=== PATIENT | female | born 1985 | race Caucasian/White ===

== ENCOUNTER → 2016-05-25 | Outpatient (CLI) | payer BC ==
[~2016-05-25] MED LIST: ACET-749 PO; PRENTAB26 PO; VALA500T60 PO
== END | disposition home or self-care (01) ==
LOC: C.LABSPEC 15:30
PROVIDERS: ATTEND Obstetrics & Gynecology
DX: O09.03 Supervision of pregnancy with history of infertility, third trimester (principal)

== ENCOUNTER 2016-06-24 19:34 | Inpatient (IN) | payer BC ==
[~2016-06-24] VITALS: Ht 167.6 cm; Wt 80.5 kg
[2016-06-24] MEDS ORDERED: LACTATED RINGER'S 1000ML 1,000 ML IV PRN (20:22)
[2016-06-24] MEDS ORDERED: PRENTAB26 PO (20:23)
[2016-06-24] MEDS ORDERED: VALA500T60 PO (20:23)
[2016-06-24 20:25] VITALS: Ht 167.6 cm; Wt 80.5 kg
[2016-06-24] MEDS ORDERED: EpHEDrine SULFATE INJ 50 MG/ML AMP ONE (21:18)
[2016-06-24] MEDS ORDERED: BUPIVACAINE 0.25% 30 ML VIAL ONE (21:18)
[2016-06-24] MEDS ORDERED: FENTANYL CITRATE INJ 50 MCG/1 ML 2 ML VIAL ONE (21:19)
[2016-06-24] MEDS ORDERED: FENTANYL 2MCG/ML ROPIV 1.25MG/ML 100ML BAG EPI ONE (21:19)
[2016-06-24 21:28] LABS: HEMATOCRIT 34.8 % (37-47); MEAN CELL VOLUME 91.8 fL (80-100); MEAN CORPUSCULAR HEMOGLOBIN 32.7 pg (25-34); MEAN CORPUSCULAR HGB CONC 35.6 g/dl (32-36); MEAN PLATELET VOLUME 11.6 fL (7.4-10.4); PLATELET COUNT 180 K/uL (130-400); RED BLOOD COUNT 3.79 M/uL (4.2-5.4); WHITE BLOOD COUNT 16.62 K/uL (4.8-10.8)
[2016-06-24] MEDS: LACTATED RINGER'S 1000ML 1,000 ML IV SCH (21:55)
[2016-06-24] MEDS ORDERED: LACTATED RINGER'S 1000ML 500 ML IV PRN (22:12)
[2016-06-24] MEDS ORDERED: NALOXONE HCL INJ 1 MG in SODIUM CHLORIDE 0.9% 1000ML 1,000 ML IV PRN ×4 (22:12)
[2016-06-24] MEDS ORDERED: NALBUPHINE HCL INJ 10 MG/ML AMP IV PRN (22:15)
[2016-06-24] MEDS ORDERED: DiphenhydrAMINE HCL 50 MG/ML VIAL IV PRN (22:15)
[2016-06-24] MEDS ORDERED: EpHEDrine SULFATE INJ 50 MG/ML AMP IV PRN (22:15)
[2016-06-24] MEDS ORDERED: PROMETHAZINE HCL INJ 25 MG in SODIUM CHLORIDE 0.9% 50ML 50 ML IV PRN (22:15)
[2016-06-24] MEDS ORDERED: ONDANSETRON INJ 2 MG/ML 2 ML VIAL IV PRN (22:15)
[2016-06-24] MEDS ORDERED: NALOXONE HCL INJ 0.4 MG/1 ML VIAL/CARP IV PRN (22:15)
[2016-06-25] MEDS: FENTANYL 2MCG/ML ROPIV 1.25MG/ML 100ML BAG EPI PRN ×3 (05:09→11:24)
[2016-06-25] MEDS: LACTATED RINGER'S 1000ML 1,000 ML IV SCH (05:39)
[2016-06-25] MEDS ORDERED: LACTATED RINGER'S 1000ML 500 ML IV PRN (08:04)
[2016-06-25] MEDS ORDERED: OXYTOCIN 30 UNITS/500ML NSS IV PRN ×2 (08:15→12:30)
[2016-06-25] MEDS ORDERED: OXYTOCIN INJ 20 UNITS in LACTATED RINGER'S 1000ML 1,000 ML IV SCH (12:22)
[2016-06-25] MEDS ORDERED: BENZOCAINE 20% AER SPR 82.5 GM CAN EXT PRN (12:30)
[2016-06-25] MEDS ORDERED: SUPERCREAM 0.870 % 15GM JAR EXT PRN (12:30)
[2016-06-25] MEDS ORDERED: DIPHTHERIA/TETANUS/PERTUSSIS 0.5 ML SYR/VIAL IM. ONE (12:30)
[2016-06-25] MEDS ORDERED: ACETAMINOPHEN/CODEINE 300/30MG TAB PO PRN (12:30)
[2016-06-25] MEDS ORDERED: ACETAMINOPHEN 325 MG TAB PO PRN (12:30)
[2016-06-25] MEDS ORDERED: HYDROCORTISONE ACETATE 25 MG SUPP PR PRN (12:30)
[2016-06-25] MEDS ORDERED: LANOLIN OINT EXT PRN ×2 (12:30)
[2016-06-25] MEDS ORDERED: OXYTOCIN 30 UNITS/500ML NSS IV ONE (12:31)
--- NOTE | 2016-06-25 12:48 | DELIVERY SUMMARY ---
DATE OF OPERATION: 06/25/2016 The patient dilated to complete and pushed to deliver a viable female infant, Apgars 8 and 9 via . Tight nuchal cord noted at the perineum and therefore doubly clamped and cut at the perineum. Shoulders and body then delivered with ease. Thin meconium was present; however, the baby did take its first gasp immediately. taken to the radiant warmer for drying and attention. Placenta delivered spontaneously and intact after cord blood collection for donation was obtained. Laceration was complicated. Partial third degree laceration noted; however, deep bleeding sites were noted at the perineal level. This required multiple sutures in a [id number] fashion to control the bleeding. The remainder of the laceration included routine repair of partial third degree laceration, which included reinforcing 2-0 Vicryl sutures around the capsule of the anus and then the remainder of the laceration repaired in the usual fashion. EBL 600 mL. Cervix and sulci were visualized and intact. Hemostasis was achieved of the uterus with dilute Pitocin and uterine massage as well as drainage of the bladder under sterile conditions for approximately 200 mL of urine. Mother and baby stable in recovery. Rectal exam performed at the end of the procedure revealing no sutures in the rectum. I attest to the content of the Intraoperative Record and any orders documented therein. Any exceptions are noted below. SHAQUILLED
--- NOTE | 2016-06-25 12:48 | Anesthesia Procedure Note ---
Anesthesia Epidural Removal Nt Date & Time Jun 25, 2016 at 12:47 Vital Signs Pain Intensity: 0.0 Notes Mental Status: alert / awake / arousable, participated in evaluation Nausea / Vomiting: adequately controlled Pain: adequately controlled Airway Patency, RR, SpO2: stable & adequate BP & HR: stable & adequate Hydration State: stable & adequate Neuraxial Anesthesia: was administered, sensory block is resolved Anesthetic Complications: no major complications apparent, pt satisfied with anesthetic care Epidural: removed without complications, with tip intact
[2016-06-25] MEDS: IBUPROFEN 600 MG TAB PO PRN ×3 (14:06→23:47)
[2016-06-25 17:15] VITALS: BP 136/67; PULSE 81; TEMP 36.9
[2016-06-25 18:10] VITALS: BP 108/57; PULSE 83; TEMP 36.5
[2016-06-25 20:30] VITALS: BP 129/68; PULSE 83; TEMP 36.6
[2016-06-25] MEDS: DOCUSATE SODIUM 100 MG CAP PO SCH (20:58)
[2016-06-25 23:35] VITALS: BP 114/63; PULSE 82; TEMP 36.6
[2016-06-26 03:55] VITALS: BP 117/68; PULSE 90; TEMP 36.5
[2016-06-26] MEDS: IBUPROFEN 600 MG TAB PO PRN ×5 (03:55→23:48)
[2016-06-26 07:48] LABS: HEMATOCRIT 25.7 % (37-47)
[2016-06-26 07:55] VITALS: BP 116/72; PULSE 86; TEMP 36.8
[2016-06-26] MEDS: DOCUSATE SODIUM 100 MG CAP PO SCH ×2 (08:21→18:57)
--- NOTE | 2016-06-26 09:46 | Progress Note ---
Subjective Jun 26, 2016. Subjective conversation w/ patient, physical exam Ambulation: ambulating normally Voiding: no voiding problems Passing Gas: Yes Diet Tolerance: Regular Diet Lochia: Small Feeding Type: Breast Feeding Pain: bottom sore, using motrin Objective Vital Signs Date Time Temp Pulse Resp B/P Pulse Ox O2 Delivery O2 Flow Rate FiO2 06/26/16 08:20 Room Air 06/26/16 07:55 36.8 86 20 116/72 06/26/16 03:55 36.5 90 16 117/68 Room Air 06/25/16 23:35 Room Air 06/25/16 23:35 36.6 82 18 114/63 Room Air 06/25/16 20:30 36.6 83 16 129/68 Room Air 06/25/16 18:10 36.5 83 18 108/57 Room Air 06/25/16 17:15 36.9 81 20 136/67 Physical Exam General Appearance: WELL-APPEARING, WD/WN, NO APPARENT DISTRESS Respiratory/Chest: lungs clear Cardiovascular: regular rate, rhythm Abdomen: non tender, soft Fundus: Firm, Relation to Umbilicus (2 down) Extremities: non-tender Laboratory Results Last 24 Hours Test 06/26/16 07:05 Hemoglobin 8.9 g/dL Hematocrit 25.7 % Assessment and Plan Post- Day#: 1 Continue Routine Care: stable, h/h noted, discussed her laceration need for colace and iron +mvi for next 6wks. routine care.
[2016-06-26] MEDS: ACETAMINOPHEN/CODEINE 300/30MG TAB PO PRN ×3 (15:19→23:49)
[2016-06-26 15:30] VITALS: BP 116/68; PULSE 86; TEMP 37
[2016-06-26 21:00] VITALS: BP 117/64; PULSE 82; TEMP 36.8
[2016-06-26 23:15] VITALS: BP 109/58; PULSE 83; TEMP 36.8
[2016-06-27] MEDS: ACETAMINOPHEN/CODEINE 300/30MG TAB PO PRN ×2 (05:11→09:48)
[2016-06-27] MEDS: IBUPROFEN 600 MG TAB PO PRN ×2 (05:11→09:48)
[2016-06-27] MEDS: DOCUSATE SODIUM 100 MG CAP PO SCH (07:28)
[2016-06-27 07:30] VITALS: BP 112/68; PULSE 80; TEMP 36.5; O2SAT 96
--- NOTE | 2016-06-27 07:43 | Progress Note ---
Subjective Jun 27, 2016. Subjective conversation w/ patient, physical exam Ambulation: ambulating normally Voiding: no voiding problems Passing Gas: Yes Diet Tolerance: Regular Diet Lochia: Small Feeding Type: Breast Feeding Review of Systems Constitutional: No chills, No fever Respiratory: No cough, No shortness of breath Cardiac: No chest pain, No palpitations Abdomen: No nausea, No pain, No vomiting Female : + problem reported (small amount of pus on tissue when wiping) Objective Vital Signs Date Time Temp Pulse Resp B/P Pulse Ox O2 Delivery O2 Flow Rate FiO2 06/26/16 23:15 Room Air 06/26/16 23:15 36.8 83 18 109/58 Room Air 06/26/16 21:00 36.8 82 20 117/64 Room Air 06/26/16 15:30 Room Air 06/26/16 15:30 37.0 86 20 116/68 Room Air 06/26/16 08:20 Room Air 06/26/16 07:55 36.8 86 20 116/72 Physical Exam General Appearance: WELL-APPEARING, NO APPARENT DISTRESS Respiratory/Chest: lungs clear, normal breath sounds Cardiovascular: regular rate, rhythm, no murmur Abdomen: normal bowel sounds, non tender Fundus: Firm, Non-Tender, Relation to Umbilicus (2 cm below) Extremities: non-tender, no calf tenderness Laboratory Results Last 24 Hours Test 06/26/16 07:05 Hemoglobin 8.9 g/dL Hematocrit 25.7 % Assessment and Plan Post- Day#: 2 Continue Routine Care: A/P: s/p Day 2 - 11/07 vaginal pain due to lacerations - Would like to go home with percocet prescription - Vital signs reviewed and wnl - Hgb reviewed 8.9 yesterday - Blood type: A+, GBS-, Rubella immune - Pt is doing well clinically - Encourage ambulation, monitor and control pain with motrin prn, resume regular diet, monitor lochia - Encourage breast feeding - Pt counselled on d/c instructions Resident Physician Supervision Note: I interviewed and examined the patient. Discussed with Dr. Dodd and agree with findings and plan as documented in the note. Any exceptions or clarifications are listed here: I did not discuss the patient with resident. I saw pt on my own. s/ no complaint except sore bottom and requests tylenol #3 for pain. voiding, ambulating without problem. jodie regular diet. bleeding has slowed. o/ af vss cor rrr, lungs ctab, abd soft ff down 2 down, ext nt calves a / ppd #2 s/p , routine care. d/c home. f/u 6 wks. Documented By: Steffanie Valladares
[2016-06-27] MEDS ORDERED: ACET-749 PO (08:40)
--- NOTE | 2016-06-27 11:04 | Discharge Instructions ---
Discharge Instructions Admission Reason for Admission: Spontaneous Onset Of Labor (Scot Dodd MD) Discharge Discharge Diagnosis / Problem: Spontaneous Vaginal Delivery (Scot Dodd MD) Discharge Goals Goal(s): Routine recovery after delivery (Scot Dodd MD) Medications Continue Dispensed Medications: supercream, dermaplast, tucks, lansinoh (Scot Dodd MD) Activity Recommendations Activity Limitations: per Instructions/Follow-up section . (Scot Dodd MD) Instructions / Follow-Up Instructions / Follow-Up ACTIVITY RECOMMENDATIONS: * Gradual return to full activity over the next 2-3 weeks. * No lifting - nothing heavier than baby over the next 2-3 weeks. * Do not engage in vigorous exercise, sexual activity or sports until cleared by your physician. * Do not drive or operate any motorized equipment until cleared by your physician. * You may shower/bathe daily. MEDICATIONS: For discomfort or pain, you may use Acetaminophen (Tylenol), Ibuprofen (Advil), or Naproxen (Aleve) following the package directions. For constipation you may use Colace following the package directions. BREAST CARE: If you are not breast feeding: * Wear a supportive bra 24 hours a day for one to two weeks. * Avoid stimulating your breasts and nipples as much as possible during the first few weeks after delivery. * When taking a shower, have the warm water hit your back, not breasts. * When your breasts feel full, apply ice packs. Usually three to four times a day helps ease the discomfort. * Take a mild pain medication (Tylenol / Motrin) when you are uncomfortable. If breast feeding: * Use breast milk to lubricate nipples. Lansinoh cream may be used for sore nipples. You do not need to remove cream prior to breast feeding. If using a different brand of cream, check the label for directions regarding removal of cream prior to nursing. * Wear a supportive bra. * If having problems with breasts or breast feeding, call a digital marketing consultant or your health care provider. EPISIOTOMY CARE: After delivery, if you have an episiotomy (stitches), the following steps will ease discomfort and aid healing. * For the first 24 hours after delivery, place ice packs next to your episiotomy to help reduce swelling. * After the first 24 hour-period, sitz baths, either portable or in the tub, are suggested. A shower with a shower arm sprayed over the episiotomy may be comforting. * Vidhi care should be done after each voiding and bowel movement. Squirt warm water from a plastic bottle over the perineum (region of the body between the anus and urinary opening) and pat dry. * Use Dermoplast to ease discomfort. Shake container. [place] directly over the episiotomy. Place a Tucks on a clean sanitary pad next to your episiotomy. SPECIAL CARE INSTRUCTIONS: When you are discharged from the hospital, it is important for you to follow the instructions listed below: * During the first week at home, you should be able to care for yourself and your baby. In addition, the usual light household activities are encouraged. * Limit your activities to the way you feel. Do not try to clean the house or move furniture. Be sensible. * If you actively engage in sports and have done so up until the time of your delivery, you may resume these activities as soon as you feel able. This may take up to one month or even longer. Use good judgment. * Continue to take your vitamins for at least six weeks after the of your baby. * Your diet need not be limited unless you were on a special diet before your delivery. Breast-feeding mothers need around 2500 calories per day and at least 64-80 ounces of fluid per day (8 to 10 glasses). * You should eat foods from the four major food groups. Crash diets or fad diets are to be avoided. Eating lean meats, fresh fruits and vegetables, low-fat dairy products, high fiber foods and a regular exercise program, will help you get back to your pre- weight without putting your health at risk. * Constipation is sometimes a problem after delivery. Take a mild laxative as needed. If breast feeding, Milk of Magnesia is acceptable to use. You may use a suppository or Fleets enema if no episiotomy. * A daily shower or tub bath is suggested. Be sure to thoroughly and gently dry the perineum. * A bloody vaginal discharge will usually continue until around four weeks post . A small amount of bleeding may continue for as long as six weeks. Vaginal discharge changes from the bright red bleeding after delivery to pink then brownish and finally yellowish-pink before becoming white and disappearing. * Bleeding may increase with activity. Your first period may come in 4-8 weeks. If you are breast feeding, your period may be delayed even longer. * [place] (sex) can begin whenever both you and your partner feel comfortable and do not have any form of genital infection. It is recommended that you wait at least six weeks for internal and external healing to occur. If you have questions, please talk to your health care practitioner. A condom should be used to prevent infection and . * Foreplay, gentle intercourse and lubrication is very important the first several times to prevent pain. A water-based lubricant such as K-Y jelly or Astroglide may be used. * If you have RH negative blood and your baby is RH positive, you will receive RHOGAM by injection prior to discharge. The nurse will give you a card to keep with you that has the date and place that you received RHOGAM after delivery. * During your care, you had a Rubella screen done to check for the presence of rubella antibodies in your blood. If your test was negative, you will receive a Rubella vaccine prior to discharge. This vaccine may cause a fever, soreness at the injection site and flu-like symptoms. If these symptoms persist, notify your health care practitioner. is not advised for one month after a Rubella vaccine. * Verbalizes understanding of car seat law as reviewed with patient nursing. * Car Seat hand-out given and reviewed with patient by nursing. * Shaken baby information reviewed with patient by nursing. Call you doctor if: * Heavy bleeding (saturating several pads an hour) or passing clots the size of your fist. * A fever >101 degrees F (38.3 degrees C) on two occasions four hours apart and /or chills. * Unusual pain in the pelvic or vaginal areas. * "Baby Blues" lasting longer than two weeks. If you have any questions or concerns, call your health care practitioner at . FOLLOW UP VISIT: * Please call the office at to schedule a 6 week examination. It is important you keep this appointment. It is important for you to make arrangements for either yearly or twice yearly check-ups thereafter. (Scot Dodd MD) Current Hospital Diet Patient's current hospital diet: Regular OB Diet (Scot Dodd MD) Discharge Diet Recommended Diet: Regular OB Diet (Scot Dodd MD) Pending Studies Studies pending at discharge: no (Scot Dodd MD) Medical Emergencies . Who to Call and When: Medical Emergencies: If at any time you feel your situation is an emergency, please call 911 immediately. . (Scot Dodd MD) Non-Emergent Contact Non-Emergency issues call your: Primary Care Provider, Freezer Operator . (Scot Dodd MD) . "Provider Documentation" section prepared by Scot Dodd. (Scot Dodd MD) VTE Core Measure Inpt VTE Proph given/why not?: Treatment not indicated (Scot Dodd MD)
[2016-06-27 12:19] VITALS: BP_DIAS 68; PULSE 80; TEMP 36.5
== END 2016-06-27 13:15 | disposition home or self-care (01) | DRG 775 ==
LOC: C.LD 19:34 → C.OPB 19:34 → C.LD 20:25 → C.OPB 20:25 → C.OBG 06-25 18:18
PROVIDERS: ADMIT Obstetrics & Gynecology; ATTEND Obstetrics & Gynecology
PROC: 0DQR0ZZ Repair Anal Sphincter, Open Approach (ICD-10-PCS; principal; 2016-06-25)
PROC: 10E0XZZ Delivery of Products of Conception, External Approach (ICD-10-PCS; principal; 2016-06-25)
DX: O70.20 Third degree perineal laceration during delivery, unspecified (principal); O69.1XX0 Labor and delivery complicated by cord around neck, with compression, not applicable or unspecified; Z37.0 Single live birth; Z3A.40 40 weeks gestation of pregnancy

== ENCOUNTER → 2016-08-08 | Outpatient (CLI) | payer BC ==
[~2016-08-08] MED LIST changes: -VALA500T60 PO
== END | disposition home or self-care (01) ==
LOC: C.PAPS 16:22
PROVIDERS: ATTEND Obstetrics & Gynecology
DX: Z39.2 Encounter for routine postpartum follow-up (principal)

== ENCOUNTER → 2017-11-16 | Outpatient (CLI) | payer BC ==
[~2017-11-16] MED LIST changes: -ACET-749 PO; +ACET300T3 PO
== END | disposition home or self-care (01) ==
LOC: C.LABSPEC 18:03
PROVIDERS: ATTEND Obstetrics & Gynecology
DX: Z34.81 Encounter for supervision of other normal pregnancy, first trimester (principal); Z3A.00 Weeks of gestation of pregnancy not specified

== ENCOUNTER → 2017-11-20 | Outpatient (CLI) | payer BC ==
[2017-11-20 09:40] LABS: BASO % 0.3 %; BASO ABS # 0.03 K/uL (0-0.2); EOS % 0.2 %; EOS ABS # 0.02 K/uL (0-0.5); HEMATOCRIT 36.7 % (37-47); HEMOGLOBIN 13.2 g/dL (12.0-16.0); IG# 0.02 K/uL (0.00-0.02); LYMPH % 28.4 %; MEAN CELL VOLUME 89.5 fL (80-100); MEAN CORPUSCULAR HEMOGLOBIN 32.2 pg (25-34); MONO % 6.9 %; MONO ABS # 0.66 K/uL (0.11-0.59); NEUT ABS # 6.07 K/uL (1.4-6.5); PLATELET COUNT 207 K/uL (130-400); RED CELL DISTRIBUTION WIDTH CV 12.2 % (11.5-14.5); RED CELL DISTRIBUTION WIDTH SD 39.7 fL (36.4-46.3)
== END | disposition home or self-care (01) ==
LOC: C.LAB1850 08:16
PROVIDERS: ATTEND Obstetrics & Gynecology
DX: Z34.81 Encounter for supervision of other normal pregnancy, first trimester (principal)

== ENCOUNTER 2019-11-22 18:47 | Inpatient (IN) ==
[2019-11-22] MEDS ORDERED: OXYTOCIN 30 UNITS/500 ML BAG IV PRN ×2 (18:53→22:56)
[2019-11-22] MEDS: LACTATED RINGER'S 1,000 ML IV PRN ×2 (18:55→19:56)
[2019-11-22 19:27] LABS: Hematocrit (blood only) 33.5 % (37-47); Hemoglobin 11.5 g/dL (12.0-16.0); Mean Corpuscular Hemoglobin 31.6 pg (25-34); Mean Platelet Volume 11.5 fL (7.4-10.4); Platelet Count 213 K/uL (130-400); RDW Coefficient of Variation 13.1 % (11.5-14.5); RDW Standard Deviation 43.6 fL (36.4-46.3); Red Blood Count 3.64 M/uL (4.2-5.4); White Blood Count 15.06 K/uL (4.8-10.8)
[2019-11-22] MEDS ORDERED: ePHEDrine sulfate 50 MG/ML AMP ONE (19:32)
[2019-11-22] MEDS ORDERED: fentaNYL citrate 100 MCG/2 ML VIAL ONE (19:33)
[2019-11-22] MEDS ORDERED: BUPIVACAINE 0.25% 30 ML VIAL ONE (19:33)
[2019-11-22] MEDS ORDERED: fentaNYL 2MCG/ML ROPIV 1.25MG/ML 100 ML BAG EPI ONE (19:33)
[2019-11-22 19:47] LABS: Mean Corpuscular Hgb Conc 34.3 g/dL (32-36)
[2019-11-22] MEDS ORDERED: ONDANSETRON INJ 2 MG/ML 2 ML VIAL IV PRN (21:01)
[2019-11-22] MEDS ORDERED: NALOXONE HCL 0.4 MG/1 ML VIAL/CARP IV PRN (21:01)
[2019-11-22] MEDS ORDERED: fentaNYL 2MCG/ML ROPIV 1.25MG/ML 100 ML BAG EPI PRN (21:01)
[2019-11-22] MEDS ORDERED: DiphenhydrAMINE HCL 50 MG/ML VIAL IV PRN (21:01)
[2019-11-22] MEDS ORDERED: NALOXONE HCL 1 MG in SODIUM CHLORIDE 0.9% 1000ML 1,000 ML IV PRN (21:01)
[2019-11-22] MEDS ORDERED: ePHEDrine sulfate 50 MG/ML AMP IV PRN (21:01)
--- NOTE | 2019-11-22 21:01 | Anesthesiology Consultation ---
Date of Service November 22, 2019 Assessment & Plan (1) Encounter for pre-operative examination: Chart Review Chart Review: Acceptable Risk for Surgery and Patient NOT seen in Pre Admission Testing Consults Requested none ASA ASA2 Proposed Anesthesia Anesthesia Type: Labor Epidural and CSE Risk / Benefits Reviewed With: PT / POA / Parent / Guardian, Accepts Plan and Informed Consent Obtained History Height/Weight Height: 5 ft 6 in Weight: 86.183 kg Allergies Allergy/AdvReac Type Severity Reaction Status Date / Time No Known Allergies Allergy Verified 11/22/19 13:18 Medications Active Medications Generic Name Dose Route Start Last Admin Trade Name Freq PRN Reason Stop Dose Admin Lactated Ringer's 1,000 mls @ 125 mls/hr 11/22/19 18:53 11/22/19 19:56 Lr IV 11/24/19 18:52 125 mls/hr .Q8H PRN Administration L&D Protocol Protocol NPO Date Last Intake of Fluids: 11/22/19 Time Last Intake of Fluids: 18:00 Date Last Intake of Solids: 11/22/19 Time Last Intake of Solids: 12:00 Past Medical History Medical History History of varicella HSV (herpes simplex virus) infection Monochorionic diamniotic twin gestation No known health problems Exercise / Class Metabolic Activity II 4-5 Yardwork/Stairs/Walk up hill Past Family History Family History Father Hypertension Heart murmur Other Colorectal cancer Diabetes Past Surgical History Surgical History History of cryosurgery History of open reduction and internal fixation (ORIF) procedure LEFT ANKLE [place] teeth removed Past Anesthesia History No Hx of Anesthesia Complications and No Family Hx of Anesthesia Complications History of PONV No Hx of PONV and No Hx of Motion Sickness Social History Smoking Status: Never smoker Do You Dip or Chew Tobacco: No Hx Alcohol Use: No Hx Substance Use: No substance use type: does not use Physical Exam Vital Signs Last Vital Signs Temp 37.4 C 11/22/19 19:04 Pulse 84 11/22/19 20:53 Resp 18 11/22/19 19:04 BP 107/55 L 07/24/20 20:45 Pulse Ox 97 11/22/19 20:53 ENMT Mouth: no dentition abnormality Thyromental Distance: > or= 3.5 Finger Breadths Mallampati Class: II Neck normal visual inspection Respiratory normal respiratory effort Auscultation: lungs clear to auscultation bilaterally Cardiovascular Rate/Rhythm: regular rate and regular rhythm Psychiatric Orientation: alert Testing Laboratory Results 11/22/19 19:11
--- NOTE | 2019-11-23 01:57 | Anesthesia Procedure Note ---
Date of Service November 23, 2019 Anesthesia Post Epidural Note Vital Signs Vital Signs: Temp Pulse Resp BP Pulse Ox 36.8 C 97 H 18 133/68 98 11/23/19 00:45 11/23/19 01:42 11/23/19 01:42 11/23/19 01:42 11/23/19 01:33 Pain Intensity Bilateral Lower Abdomen: Pain Intensity: 1 Notes Mental Status: alert / awake / arousable Nausea / Vomiting: adequately controlled Pain: adequately controlled Airway Patency, RR, SpO2: stable & adequate BP & HR: stable & adequate Hydration State: stable & adequate Neuraxial Anesthesia: was administered and sensory block is resolving Anesthetic Complications: no major complications apparent and Pt Satisfied with anesthetic care Epidural: Removed without complications and With tip intact
[2019-11-23] MEDS ORDERED: ACETAMINOPHEN 325 MG TAB PO PRN (02:01)
[2019-11-23] MEDS ORDERED: HYDROCORTISONE ACETATE 25 MG SUPP PR PRN (02:01)
[2019-11-23] MEDS ORDERED: BENZOCAINE 20% AER SPR 82.5 GM CAN EXT PRN (02:01)
[2019-11-23] MEDS ORDERED: SUPERCREAM 0.870% 15 GM JAR EXT PRN (02:01)
[2019-11-23] MEDS ORDERED: OXYCODONE/ACETAMINOPHEN 5mg/325mg TAB PO PRN (02:01)
[2019-11-23] MEDS ORDERED: DIPHTHERIA/TETANUS/PERTUSSIS 0.5 ML SYR/VIAL IM ONE (02:01)
[2019-11-23] MEDS ORDERED: OXYTOCIN 30 UNITS/500 ML BAG IV PRN (02:01)
[2019-11-23] MEDS ORDERED: bisacodyL 10 MG SUPP PR PRN (02:01)
--- NOTE | 2019-11-23 02:10 | Delivery Summary ---
Vaginal Delivery Summary Date of Service November 23, 2019 Patient presented to labor and delivery after spontaneous rupture membranes for thin meconium stained fluid. She began jose spontaneously and requested epidural analgesia. She progressed to full dilation and pushed effectively over intact perineum for delivery of a viable female into the infant. After the head was delivered the left arm delivered and the rest of the infant delivered easily to follow. The cord was very short and therefore it was clamped and cut at the perineum so the baby could be put on the mother's abdomen. There was vigorous crying and the infant was moving all 4 limbs. The placenta was expressed intact with a three-vessel cord. A second-degree perineal laceration was repaired with 3-0 chromic in the usual fashion. bleeding was controlled with dilute Pitocin. Estimated blood loss is 300 cc. Mother and are doing well post delivery. [facility] [place] Vaginal Delivery Codes: 50579 global code for the antepartum, delivery, and post-
[2019-11-23] MEDS: IBUPROFEN 600 MG TAB PO PRN ×4 (06:58→20:10)
--- NOTE | 2019-11-23 07:43 | Obstetrical Progress Note ---
Date of Service November 23, 2019 Assessment & Plan (1) Encounter for care and examination after delivery: satisfactory progress continue current care plan Subjective Ambulation: ambulating normally Voiding: no voiding problems Passing Gas:: Yes Diet Tolerance:: regular diet Lochia:: Moderate Feeding Type:: breast feeding Review of Systems All systems reviewed & are unremarkable except as noted in HPI & below Physical Exam Constitutional WD/WN, vitals as above Psychiatric A+Ox3, euthymic affect Genitourinary OB Exam Abdomen: + fundal height Fundus: + firm and + relation to umbilicus (1 above U) Results & Data ([facility]) Vital Signs (Past 12 Hours) Vital Signs Temp Pulse Resp BP Pulse Ox 11/23/19 07:04 98.4 F 86 20 113/79 11/23/19 03:42 90 16 112/59 L 11/23/19 03:27 86 123/62 11/23/19 03:12 99 H 18 122/82 11/23/19 02:42 88 18 118/72 11/23/19 02:27 95 H 18 121/77 11/23/19 02:12 96 H 18 119/62 11/23/19 02:00 98 H 18 127/69 11/23/19 01:42 97 H 18 133/68 11/23/19 01:33 96 H 98 11/23/19 01:30 99 H 139/82 11/23/19 01:28 101 H 98 11/23/19 01:23 110 H 95 11/23/19 01:20 108 H 85 L 11/23/19 01:18 100 H 97 11/23/19 01:15 105 H 144/84 H 11/23/19 01:14 108 H 86 L 11/23/19 01:13 107 H 90 11/23/19 01:08 96 H 98 11/23/19 01:03 88 97 11/23/19 01:00 86 107/61 11/23/19 00:58 89 97 11/23/19 00:53 93 H 96 11/23/19 00:48 88 97 11/23/19 00:45 98.2 F 93 H 120/71 11/23/19 00:43 92 H 97 11/23/19 00:38 92 H 98 11/23/19 00:33 92 H 98 11/23/19 00:31 89 116/68 11/23/19 00:28 87 98 11/23/19 00:23 84 98 11/23/19 00:18 87 99 11/23/19 00:16 90 131/65 11/23/19 00:13 90 98 11/23/19 00:08 85 99 11/23/19 00:03 86 100 11/23/19 00:01 88 134/73 11/22/19 23:58 85 100 11/22/19 23:53 88 100 11/22/19 23:48 86 98 11/22/19 23:45 88 111/60 11/22/19 23:43 86 98 11/22/19 23:38 90 96 11/22/19 23:33 83 96 11/22/19 23:31 87 113/58 L 11/22/19 23:28 91 H 96 11/22/19 23:23 84 97 11/22/19 23:18 88 96 11/22/19 23:16 83 112/55 L 11/22/19 23:13 90 96 11/22/19 23:08 82 96 11/22/19 23:03 84 96 11/22/19 23:01 98.6 F 83 18 111/59 L 11/22/19 22:58 83 96 11/22/19 22:53 84 96 11/22/19 22:48 81 96 11/22/19 22:46 81 110/58 L 11/22/19 22:43 82 95 11/22/19 22:38 83 96 11/22/19 22:33 80 96 11/22/19 22:30 82 18 105/63 11/22/19 22:28 82 97 11/22/19 22:23 83 97 11/22/19 22:18 84 97 11/22/19 22:17 85 101/64 11/22/19 22:13 90 97 11/22/19 22:08 90 97 11/22/19 22:03 83 97 11/22/19 22:01 88 103/54 L 11/22/19 22:00 18 11/22/19 21:58 85 96 11/22/19 21:53 81 95 11/22/19 21:48 83 95 11/22/19 21:45 82 96/51 L 11/22/19 21:43 83 94 07/24/20 21:38 81 94 24/20 21:33 83 95 24/20 21:31 85 94/52 L 20 21:30 18 20 21:28 86 95 11/21/20 21:23 85 95 11/21/20 21:18 81 96 20 21:17 84 103/51 L 11/22/19 21:13 86 96 11/22/19 21:08 83 97 11/22/19 21:03 84 97 11/22/19 21:02 98.2 F 11/22/19 21:01 79 111/54 L 11/22/19 21:00 18 11/22/19 20:58 82 97 20 20:53 84 97 20 20:48 81 97 11/22/19 20:45 86 107/55 L 11/22/19 20:43 83 97 20 20:38 83 97 20 20:35 18 11/22/19 20:33 82 98 20 20:29 82 102/53 L 20 20:28 83 96 20 20:27 79 108/53 L 20 20:25 80 18 99/55 L 20 20:24 78 97/50 L 11/22/19 20:23 78 93 20 20:20 18 11/22/19 20:19 75 104/59 L 20 20:18 77 94 20 20:17 71 110/64 20 20:15 74 18 108/55 L 93 20 20:13 72 100 20 20:08 78 100 20 20:03 82 97 20 19:58 83 97
[2019-11-23] MEDS: PRENATAL VITAMIN 1 TAB PO SCH (08:29)
[2019-11-23] MEDS: DOCUSATE SODIUM 100 MG CAP PO SCH ×2 (08:29→20:12)
[2019-11-23 20:44] VITALS: O2SAT 97
[2019-11-24] MEDS: IBUPROFEN 600 MG TAB PO PRN ×2 (01:39→08:28)
[2019-11-24 06:50] LABS: Hematocrit (blood only) 31.4 % (37-47); Hemoglobin 10.4 g/dL (12.0-16.0); Mean Corpuscular Hgb Conc 33.1 g/dL (32-36); Mean Corpuscular Volume 93.7 fL (80-100); Mean Platelet Volume 11.3 fL (7.4-10.4); Platelet Count 192 K/uL (130-400); RDW Coefficient of Variation 13.3 % (11.5-14.5); RDW Standard Deviation 45.6 fL (36.4-46.3); Red Blood Count 3.35 M/uL (4.2-5.4); White Blood Count 11.25 K/uL (4.8-10.8)
--- NOTE | 2019-11-24 07:30 | Obstetrical Progress Note ---
Date of Service November 24, 2019 Assessment & Plan (1) Status post vaginal delivery: Doing well. Plan d/c. Instructions given. Day #:: 2 Subjective Ambulation: ambulating normally Voiding: no voiding problems Passing Gas:: Yes Diet Tolerance:: regular diet Lochia:: Small Feeding Type:: breast feeding Physical Exam Constitutional WD/WN, vitals as above Cardiovascular Extremities: no calf tenderness and no edema Gastrointestinal (Abdomen) soft, nt, nd, ff/nt at u Psychiatric A+Ox3, euthymic affect Results & Data ([facility]) Vital Signs (Past 12 Hours) Vital Signs Temp Pulse Resp BP Pulse Ox 11/23/19 23:10 36.4 C 76 16 111/66 97 11/23/19 19:56 36.6 C 84 16 134/81 97
[2019-11-24] MEDS: DOCUSATE SODIUM 100 MG CAP PO SCH (08:28)
[2019-11-24] MEDS: PRENATAL VITAMIN 1 TAB PO SCH (08:28)
[2019-11-24 09:29] VITALS: BP 112/69; PULSE 78; TEMP 97.7
[2019-11-24] MEDS ORDERED: bisacodyL 5 MG TABEC PO SCH (20:00)
== END 2019-11-24 11:40 | disposition home or self-care (01) | DRG 807 ==
LOC: OPB 18:47 → 4S1 18:49 → 4S2 11-23 11:35